=== PATIENT | female | born 1950 | race Caucasian/White ===

== ENCOUNTER 2018-03-26 13:03 | Emergency (ER) | payer BC, MEDICARE ==
[~2018-03-26] VITALS: Ht 157.5 cm; Wt 54.4 kg
[2018-03-26] MEDS ORDERED: PROAIR HFA8.5 GM INH (13:28)
[2018-03-26] MEDS ORDERED: VITAMIN B-1250 MC2 PO (13:29)
[2018-03-26] MEDS ORDERED: IBUPROFEN 600600 M1 PO (13:29)
[2018-03-26] MEDS ORDERED: PREDNISONE 20 M20 M1 PO (13:47)
[2018-03-26] MEDS ORDERED: ZPAK PO (13:47)
[2018-03-26] MEDS ORDERED: VENTOLIN HFA 1818 GM INH (13:47)
[2018-03-26 14:31] VITALS: BP 144/84
== END 2018-03-26 14:32 | disposition home or self-care (01) ==
LOC: M.ERS 13:03
DX: J44.1 Chronic obstructive pulmonary disease with (acute) exacerbation (principal); T78.49XA Other allergy, initial encounter; J40 Bronchitis, not specified as acute or chronic; K21.9 Gastro-esophageal reflux disease without esophagitis; F17.210 Nicotine dependence, cigarettes, uncomplicated; Z88.5 Allergy status to narcotic agent; Z88.8 Allergy status to other drugs, medicaments and biological substances; X58.XXXA Exposure to other specified factors, initial encounter

== ENCOUNTER → 2021-06-23 | Day surgery (SDC) | payer OTHER ==
[~2021-06-23] MED LIST: ACETAMINOPHEN500 M1 PO; IBUPROFEN 600600 M1 PO; LEVO-T25 MCG PO; LIALDA1.2 GM PO; LIPITOR40 MG PO; OMEPRAZOLE40 MG PO; PREDNISONE 20 M20 M1 PO; PROAIR HFA8.5 GM INH; VENTOLIN HFA 1818 GM INH; VITAMIN B-1250 MC2 PO; VITAMIN D3125 MC2 PO; ZPAK PO
--- NOTE | ~2021-06-23 | PROC ---
[address] [address] PROCEDURE REPORT Name: TOMMY PERES Room: [facility]#: [id number] Admission: 06/23/21 Attend Phys: Tayo Noonan DO Discharge: Date of : 48 Report #: [id number] THIS REPORT FOR: cc: Nabila Armendariz Tara DO [facility],Medical Records Staff ~ For GI report, please see the Provation report in Perceptive 7 content. By: 1053Medical Records Staff NEAL /FLOR
[2021-06-23 09:52] LABS: HEMATOCRIT 37.1 % (37.0-47.0); MCH 26.9 pg (26.0-34.0); MCHC 32.3 g/dL (28.0-37.0); MCV 83.2 fL (80.0-100.0); RBC 4.46 mil/uL (4.20-5.00); RDW-CV 16.9 % (10.5-14.5); WBC 10.5 thou/uL (4.0-11.0)
[2021-06-23 10:13] LABS: CALCIUM 8.9 mg/dL (8.5-10.1); CREATININE 0.8 mg/dL (0.6-1.3); POTASSIUM 3.2 mmol/L (3.5-5.1)
--- NOTE | 2021-06-23 11:06 | EKG ---
[place] [address] ELECTROCARDIOGRAM REPORT Name: TOMMY PERES Room: [facility]#: [id number] Admission: 06/23/21 Attend Phys: Tayo Noonan, Discharge: Date of : 48 Date of Service: 06/23/2150 Report #: [id number] THIS REPORT FOR: //name// [facility] Test Date: 2021-06-23 Test Time: 09:50:25 Pat Name: TOMMY PERES Department: Room: Gender: Community Services Manager: [facility] [place] 1950 Requested By: Tayo Noonan Order Number: [id number] Reading MD: Ferny Gauthier Measurements Intervals [place] Rate: 90 P: 89 ME: 205 QRS: 45 QRSD: 97 T: 77 QT: 369 QTc: 452 Interpretive Statements Sinus rhythm No previous ECG available for comparison Electronically Signed On 06-23-2021 11:06:14 [employer] SERVICE [employer] by Ferny Gauthier [email or web address] <ELECTRONICALLY SIGNED> By: Ferny Gauthier MD, [facility] 06/23/21 1106 0950 Ferny Gauthier MD, FACC /EPI
[2021-06-23 11:49] LABS: ALBUMIN 3.7 g/dL (3.4-5.0); DIRECT BILIRUBIN 0.1 mg/dL (<0.1-0.3); TOTAL BILIRUBIN 0.6 mg/dL (<0.1-1.0); TOTAL PROTEIN 7.9 g/dL (6.4-8.2)
--- NOTE | 2021-06-29 14:07 | PATH ---
[facility] [address] [place] [address] PATHOLOGY RPT PROCEDURE Name: JONNA PERES Room: [facility]#: [id number] Admission: 06/23/21 Date of : 48 Discharge: Report #: [id number] Path Case #: [id number] [facility] Accession Number: [id number] . 01 Material submitted: . 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 Modifiers: ascending PART D: colon - PROXIMAL ASCENDING COLON POLYP. Modifiers: proximal, ascending PART E: colon - TRANSVERSE COLON. Modifiers: transverse PART F: colon - DESCENDING COLON. Modifiers: descending PART G: sigmoid colon - SIGMOID COLON PART H: rectum - RECTUM . 01 Clinical history: . EGD AND COLONOSCOPY . 02 Diagnosis: A. Balbuena's esophagus 25 cm: - Benign esophageal and Balbuena's mucosa with mild chronic inflammation typical of reflux, negative for dysplasia. . B., C., E. and F. Cecum, ascending colon, transverse colon, and descending colon: - Normal colonic mucosa. . D. Proximal ascending colon polyp: - Tubular adenoma, negative for high-grade dysplasia. . G. Sigmoid colon: - Chronic colitis with moderate activity, negative for granulomas, viral inclusions and dysplasia. See comment. . H. Rectum: - Benign colonic mucosa with fresh hemorrhage and suggestion of chronic colitis, negative for activity, granulomas, viral inclusions and dysplasia. See comment. (CYNTHIA:sarah; 06/25/2021) [facility] 06/25/2021 1254 Local . 02 Comment: There is easily recognized chronic inflammation in the sigmoid colon biopsy (G) evidenced by prominent crypt distortion and abundant basal plasmacytosis associated with many eosinophils and activity is evidenced by cryptitis and scattered crypt abscesses. In the rectum biopsy (C) there is slight basal lymphoplasmacytosis. These findings are compatible with ulcerative [place] [address] PATHOLOGY RPT PROCEDURE Name: MONSTER PERESARA Willard Room: [facility]#: [id number] Admission: 06/23/21 Date of : 48 Discharge: Report #: [id number] Path Case #: [id number] (CYNTHIA:[facility]; 06/25/2021) . 02 Electronically signed: . Jason Sadler MD, Pathologist NPI- [id number] . 01 Gross description: . A. Received in formalin labeled "Brown, Jonna, Balbuena's esophagus 25 cm" are multiple gagnon-brown soft tissue fragments measuring in aggregate 0.8 x 0.3 x 0.1 cm. The specimen is submitted entirely in A1. . B. Received in formalin labeled "Brown, Jonna, cecum for ulcerative colitis" are multiple gagnon-brown soft tissue fragments measuring in aggregate 1.0 x 0.2 x 0.1 cm. The specimen is submitted entirely in B1. . C. Received in formalin labeled "Brown, Jonna, ascending colon" are 2 gagnon-brown soft tissue fragments measuring in aggregate 0.6 x 0.3 x 0.1 cm. The specimen is submitted entirely in C1. . D. Received in formalin labeled "Brown, Jonna, proximal ascending colon polyp" is a fragment of gagnon-brown mucosa and multiple fragments of gagnon-brown possible fecal material measuring in aggregate 0.4 x 0.3 x 0.1 cm. The specimen is submitted entirely in D1. . E. Received in formalin labeled "Brown, Jonna, transverse colon BX" is a fragment of gagnon-brown soft tissue measuring 0.4 x 0.3 x 0.1 cm. The specimen is submitted entirely in E1. . F. Received in formalin labeled "Brown, Jonna, descending colon BX" are 2 gagnon-brown soft tissue fragments measuring in aggregate 0.5 x 0.2 x 0.1 cm. The specimen is submitted entirely in F1. . G. Received in formalin labeled "Brown, Jonna, sigmoid colon BX" are multiple gagnon-brown soft tissue fragments measuring in aggregate 0.5 x 0.2 x 0.1 cm. The specimen is submitted entirely in G1. . H. Received in formalin labeled "Brown, Jonna, rectal BX" and labeled on the requisition as "rectum" is a fragment of gagnon-brown soft tissue measuring 0.3 x 0.2 x 0.1 cm. The specimen is submitted entirely in H1. ([facility]; 06/24/2021) [facility] 06/24/2021 [facility]9 Local . 02 Pathologist provided ICD-10: K22.70, K20.90, D12.2, K52.9 . 02 CPT . 978286, 593896, 697463, 289361, 530644, 368247, 999055, [id number] Specimen Comment: A courtesy copy of this report has been sent to [phone], [phone] [address] PATHOLOGY RPT PROCEDURE Name: JONNA PERES Willard Room: [facility].#: [id number] Admission: 06/23/21 Date of : 48 Discharge: Report #: [id number] Path Case #: [id number] Specimen Comment: [id number] Specimen Comment: Report sent to / DR BAER Specimen Comment: A duplicate report has been generated due to demographic updates. Performed at: 01 [facility] [address], [place], [place] [id number] MD Ambrocio Feliz MD Phone: [phone] Performed at: 02 [facility] [address] [place], [place] [id number] MD Jason Sadler MD Phone: [phone]
== END | disposition home or self-care (01) ==
LOC: M.SUR 08:36
PROVIDERS: ATTEND Internal Medicine Gastroenterology
DX: K51.30 Ulcerative (chronic) rectosigmoiditis without complications (principal); D12.2 Benign neoplasm of ascending colon; K52.9 Noninfective gastroenteritis and colitis, unspecified; K57.30 Diverticulosis of large intestine without perforation or abscess without bleeding; K64.4 Residual hemorrhoidal skin tags; K20.90 Esophagitis, unspecified without bleeding; K22.70 Barrett's esophagus without dysplasia; K44.9 Diaphragmatic hernia without obstruction or gangrene; J44.9 Chronic obstructive pulmonary disease, unspecified; Z98.890 Other specified postprocedural states; Z79.899 Other long term (current) drug therapy; Z20.822 Contact with and (suspected) exposure to COVID-19; Z88.8 Allergy status to other drugs, medicaments and biological substances